=== PATIENT | female | born 1985 ===

== ENCOUNTER 2017-09-25 13:32 | Observation (INO) | payer OTHER ==
--- NOTE | 2017-09-25 13:45 | ED PDOC ---
Arrival/HPI - General Historian: Patient <Baldomero Rea - Last Filed: 09/25/17 17:09> <Joel Mckeon - Last Filed: 09/25/17 17:32> - General Chief Complaint: Shortness Of Breath Time Seen by Provider: 09/25/17 13:44 - History of Present Illness Narrative History of Present Illness (Text): 09/25/17 13:44 32 y/o female, no significant pmh, nkda, non-smoker, c/o coughing for the past 3 months with no recent traveling. Pt. has been having dry to productive coughing x 2-3 months, been having wheezing/shortness of breath of breath on and off for the past 2 weeks, no night sweat, no rash, no hemoptysis, no weight loss, no calf pain, no other medical or psychological complaints. (Baldomero Rea) Past Medical History - Provider Review Nursing Documentation Reviewed: Yes - Psychiatric Hx Psychophysiologic Disorder: No Hx Substance Use: No <Baldomero Rea - Last Filed: 09/25/17 17:09> Family/Social History - Physician Review Nursing Documentation Reviewed: Yes Family/Social History: Unknown Family HX Smoking Status: Never Smoked Hx Alcohol Use: Yes Frequency of alcohol use: Socially Hx Substance Use: No <Baldomeor Rea - Last Filed: 09/25/17 17:09> Allergies/Home Meds <Baldomero Rea - Last Filed: 09/25/17 17:09> <Joel Mckeon - Last Filed: 09/25/17 17:32> Allergies/Adverse Reactions: Allergies No Known Allergies Allergy (Verified 09/25/17 13:39) Home Medications: Home Meds Medication Instructions Recorded Confirmed No Known Home Med 09/25/17 09/25/17 Review of Systems - Review of Systems Constitutional: absent: Fatigue, Fevers Eyes: absent: Vision Changes ENT: absent: Hearing Changes Respiratory: SOB, Cough, Sputum Cardiovascular: absent: Chest Pain Gastrointestinal: absent: Abdominal Pain, Nausea, Vomiting Skin: absent: Rash, Pruritis Neurological: absent: Headache Psychiatric: absent: Anxiety, Depression <Baldomero Rea - Last Filed: 09/25/17 17:09> Physical Exam Vital Signs Reviewed: Yes Temperature: Afebrile Blood Pressure: Normal Pulse: Tachycardic Respiratory Rate: Normal Appearance: Positive for: Well-Appearing, Non-Toxic, Comfortable Pain Distress: None Mental Status: Positive for: Alert and Oriented X 3 - Systems Exam Head: Present: Atraumatic, Normocephalic Pupils: Present: PERRL Extroacular Muscles: Present: EOMI Conjunctiva: Present: Normal Mouth: Present: Moist Mucous Membranes Neck: Present: Normal Range of Motion Respiratory/Chest: Present: Wheezes, Decreased Breath Sounds, Rales, Rhonchi. No: Respiratory Distress, Accessory Muscle Use, Retracting, Tachypneic, Tender to Palpation Cardiovascular: Present: Regular Rate and Rhythm, Normal S1, S2. No: Murmurs Abdomen: No: Tenderness, Distention, Peritoneal Signs, Rebound, Guarding Back: Present: Normal Inspection Upper Extremity: Present: Normal Inspection. No: Cyanosis, Edema Lower Extremity: Present: Normal Inspection. No: Edema Neurological: Present: GCS=15, CN II-XII Intact, Speech Normal Skin: Present: Warm, Dry, Normal Color. No: Rashes Psychiatric: Present: Alert, Oriented x 3, Normal Insight, Normal Concentration <Baldomero Rea Q - Last Filed: 09/25/17 17:09> Vital Signs Temp Pulse Resp BP Pulse Ox 09/25/17 17:23 112 H 18 140/86 97 09/25/17 13:39 98.5 F 104 H 19 111/71 95 09/25/17 13:33 98.5 F 104 H 19 111/71 95 Medical Decision Making - Lab Interpretations I have reviewed the lab results: Yes - RAD Interpretation Automotive Production Worker: Radiologist - EKG Interpretation Interpreted by ED Physician: Yes Type: 12 lead EKG <Baldomero Rea - Last Filed: 09/25/17 17:09> <Joel Mckeon - Last Filed: 09/25/17 17:32> ED Course and Treatment: 09/25/17 13:56 -labs/dimer/bnp/cardiac enzymes -ekg -cxr -IVF/duoneb -observe and reassess 09/25/17 14:32 -Dimer 404, CTA ordered and chest xray cancelled 09/25/17 16:57 -Urine hcg is negative. -EKG: NSR @ 98 BPM, no ST elevation or depression, no T wave inversion. -CTA show: Limited examination. No large central pulmonary embolism. Cannot evaluate segmental and subsegmental pulmonary artery branches reliably on the basis of this examination. Patchy opacities in both lower lobes, right greater than left. Possible infectious etiology. -Labs show no acute findings except wbc 17 -Troponin is negative after 3 months of symptoms -BNP is negative -Dimer show 404 -Pt. refused guaiac exam and denies dark/black color stool, no bright red blood , no hematuria, no petechiae. -IV rocephine/azithromycin/solumedrol ordered as she is still wheezing, lovenox 85mg SC ordered, blood culture and pt/ptt ordered. -Pt. will need admission for IV antibiotics and further work up for r/o PE as the CTA is limited study. -I discussed the labs/radiology results with the patient and she agreed to be admitted. -Hospitalist paged. 09/25/17 17:10 -I discussed the case with Dr. Sagar Reynoso , discussed about the labs/radiology results/medications and treatment given, agreed to admit to their service. -I discussed the case with Dr. Wells, discussed about the labs/radiology results /medications and treatment given. He will put in the admission. (Baldomero Rea) - Lab Interpretations Lab Results: 09/25/17 14:18 09/25/17 14:18 Lab Results 09/25/17 14:18: WBC 17.0 H, RBC 4.03, Hgb 12.5, Hct 36.8, MCV 91.3, MCH 31.0, MCHC 34.0, RDW 12.1, Plt Count 285, MPV 10.4, Gran % 70.9 H, Lymph % (Auto) 17.3 L, [place] % (Auto) 8.1 H, Eos % (Auto) 3.5, Baso % (Auto) 0.2, Gran # 12.01 H , Lymph # (Auto) 2.9, [place] # (Auto) 1.4 H, Eos # (Auto) 0.6, Baso # (Auto) 0.03 09/25/17 14:18: Sodium 141, Potassium 3.7, Chloride 104, Carbon Dioxide 25, Anion Gap 15, BUN 6 L, Creatinine 0.8, Est GFR ( Amer) > 60, Est GFR (Non -Af Amer) > 60, Random Glucose 95, Calcium 9.7, Magnesium 1.9, Total Bilirubin 0.5, AST 29, ALT 43, Alkaline Phosphatase 61, Lactate Dehydrogenase 383, Total Creatine Kinase 110, Troponin I < 0.01, NT-Pro-B Natriuret Pep 72.5, Total Protein 7.4, Albumin 4.2, Globulin 3.1, Albumin/Globulin Ratio 1.4 09/25/17 14:18: D-Dimer, Quantitative 404 H - RAD Interpretation Radiology Orders: 09/25/17 14:32 ANGIO CHEST PE PROTOCOL [CT] Stat FINDINGS: PULMONARY ARTERIES: Evaluation technically limited. No large central pulmonary embolism in main or lobar arteries. Segmental/ subsegmental pulmonary arterial evaluation is limited. AORTA: No acute findings. No thoracic aortic aneurysm. LUNGS: Nonspecific patchy opacities in both lower lobes, right greater than left. Possible pneumonia. PLEURAL SPACES: Unremarkable. No effusion or pneuomothorax. HEART: Unremarkable. No cardiomegaly. No significant pericardial effusion. LYMPH NODES: No lymphadenopathy. BONES, CHEST WALL: Unremarkable. No fracture or destructive lesion OTHER FINDINGS: Unremarkable. IMPRESSION: Limited examination. No large central pulmonary embolism. Cannot evaluate segmental and subsegmental pulmonary artery branches reliably on the basis of this examination. Patchy opacities in both lower lobes, right greater than left. Possible infectious etiology. (Baldomero Rea) - EKG Interpretation EKG Interpretation (Text): 09/25/17 14:01 -EKG: NSR @ 98 BPM, no ST elevation or depression, no T wave inversion. (Baldomero Rea) - Medication Orders Current Medication Orders: Azithromycin (Zithromax 500mg In Ns) 500 mg in 250 mls @ 167 mls/hr IVPB STAT STA PRN Reason: Protocol Stop: 09/25/17 18:20 Discontinued Medications Albuterol/Ipratropium (Duoneb 3 Mg/0.5 Mg (3 Ml) Ud) 3 ml IH Q15M CHRISSY Stop: 09/25/17 14:31 Last Admin: 09/25/17 14:43 Dose: 3 ml Enoxaparin Sodium (Lovenox) 90 mg SC STAT STA PRN Reason: Protocol Stop: 09/25/17 17:29 Sodium Chloride (Sodium Chloride 0.9%) 1,000 mls @ 999 mls/hr IV .Q1H1M STA Stop: 09/25/17 14:53 Last Admin: 09/25/17 14:11 Dose: 999 mls/hr eMAR Start Stop Document 09/25/17 14:11 SRE (Rec: 09/25/17 14:13 SRE [id number]) Intravenous Solution Start Date 09/25/17 Start Time 14:13 End Date 09/25/17 End time 15:15 Total Infusion Time 62 Ceftriaxone Sodium (Rocephin 1 Gram Ivpb) 1 gm in 100 mls @ 200 mls/hr IVPB STAT STA PRN Reason: Protocol Stop: 09/25/17 17:20 Last Admin: 09/25/17 17:10 Dose: 200 mls/hr eMAR Start Stop Document 09/25/17 17:10 SRE (Rec: 09/25/17 17:10 SRE [id number]) Intravenous Solution Start Date 09/25/17 Start Time 17:10 End Date 09/25/17 End time 18:00 Total Infusion Time 50 Methylprednisolone (Solu-Medrol) 125 mg IVP STAT STA Stop: 09/25/17 16:53 Last Admin: 09/25/17 17:13 Dose: 125 mg IVP Administration Document 09/25/17 17:13 SRE (Rec: 09/25/17 17:13 SRE [id number]) Charges for Administration # of IVP Administrations 1 - PA / [employer]TAIN / Resident Statement LESLIE has reviewed & agrees with the documentation as recorded. <Baldomero Rea - Last Filed: 09/25/17 17:09> - PA / [employer] CAPTAIN / Resident Statement LESLIE has reviewed & agrees with the documentation as recorded. <Joel Mckeon - Last Filed: 09/25/17 17:32> Disposition/Present on Arrival - Present on Arrival Any Indicators Present on Arrival: No History of DVT/PE: No History of Uncontrolled Diabetes: No Urinary Catheter: No History of Decub. Ulcer: No History Surgical Site Infection Following: None - Disposition Have Diagnosis and Disposition been Completed?: Yes Disposition Time: 13:56 Patient Plan: Admission <Baldomero Rea - Last Filed: 09/25/17 17:09> <Joel Mckeon - Last Filed: 09/25/17 17:32> - Disposition Diagnosis: Bilateral pneumonia, Shortness of breath, Leukocytosis Disposition: HOSPITALIZED Patient Problems: Current Active Problems Problem Status Onset Bilateral pneumonia Acute Leukocytosis Acute Shortness of breath Acute Condition: STABLE Referrals: PCP,NO [Primary Care Provider] - Follow up with primary Forms: [employer] (Mont[place]grin)
[2017-09-25] MEDS ORDERED: Sodium Chloride 0.9% 1,000 ML IV STA (13:53)
[2017-09-25] MEDS: Albuterol-Ipratrop 3 mg / 0.5 (3 ml) UD IH SCH ×3 (14:13→14:43)
[2017-09-25 14:21] LABS: BASO # 0.03 K/mm3 (0.0-2.0); BASO % 0.2 % (0.0-3.0); EOS # 0.6 (0.0-0.7); EOS % 3.5 % (1.5-5.0); GRAN # 12.01 (1.4-6.5); GRAN % 70.9 % (50.0-68.0); HEMOGLOBIN 12.5 g/dL (12.0-16.0); LYMPH # 2.9 (1.2-3.4); LYMPH % 17.3 % (22.0-35.0); MEAN CELL VOLUME 91.3 fl (80.0-105.0); MEAN PLATELET VOLUME 10.4 fl (7.0-11.0); MONO # 1.4 (0.1-0.6); MONO % 8.1 % (1.0-6.0); RBC 4.03 10^6/uL (3.5-6.1); RED CELL DISTRIBUTION WIDTH 12.1 % (11.5-14.5)
[2017-09-25 14:33] LABS: ALB/GLOB RATIO 1.4 (1.1-1.8); ALBUMIN 4.2 g/dL (3.0-4.8); ALT/SGPT 43 U/L (7-56); AST/SGOT 29 U/L (14-36); BLOOD UREA NITROGEN 6 mg/dL (7-21); CALCIUM 9.7 mg/dL (8.4-10.5); GFR AFRICAN-AMERICAN > 60; GFR NON-AFRICAN AMERICAN > 60
[2017-09-25 14:45] LABS: B-TYPE NATRIURETIC PEPTIDE 72.5 pg/mL (0-450); TROPONIN I < 0.01 ng/mL
[2017-09-25] MEDS ORDERED: Iohexol 350 MG/100 ML VIAL ONE (14:51)
[2017-09-25] MEDS ORDERED: Azithromycin 500MG/NS 250ml 500 MG/250 ML BAG IVPB STA (16:51)
[2017-09-25] MEDS ORDERED: cefTRIAXone 1 gm 1 GM/100 ML BAG IVPB STA (16:51)
--- NOTE | 2017-09-25 16:51 | CT ---
PROCEDURE: CT Chest with contrast (Pulmonary Angiogram) HISTORY: shortnes of breath, dimer 404, wheezing x 3 months COMPARISON: None available. TECHNIQUE: Axial computed tomography images were obtained of the chest in the pulmonary arterial phase of enhancement. Coronal and sagittal reformatted images were created and reviewed. Intravenous contrast dose: 92 mL Omnipaque 350 Radiation dose: Total exam DLP = 491.21 mGy-cm. This CT exam was performed using one or more of the following dose reduction techniques: Automated exposure control, adjustment of the mA and/or kV according to patient size, and/or use of iterative reconstruction technique. FINDINGS: PULMONARY ARTERIES: Evaluation technically limited. No large central pulmonary embolism in main or lobar arteries. Segmental/ subsegmental pulmonary arterial evaluation is limited. AORTA: No acute findings. No thoracic aortic aneurysm. LUNGS: Nonspecific patchy opacities in both lower lobes, right greater than left. Possible pneumonia. PLEURAL SPACES: Unremarkable. No effusion or pneuomothorax. HEART: Unremarkable. No cardiomegaly. No significant pericardial effusion. LYMPH NODES: No lymphadenopathy. BONES, CHEST WALL: Unremarkable. No fracture or destructive lesion OTHER FINDINGS: Unremarkable. IMPRESSION: Limited examination. No large central pulmonary embolism. Cannot evaluate segmental and subsegmental pulmonary artery branches reliably on the basis of this examination. Patchy opacities in both lower lobes, right greater than left. Possible infectious etiology.
[2017-09-25] MEDS ORDERED: Enoxaparin 100 mg Syringe SC STA ×2 (16:53→17:28)
[2017-09-25] MEDS ORDERED: Enoxaparin 60 mg Syringe SC STA (17:15)
[2017-09-25 18:07] LABS: INR 1.03 (0.93-1.08); PARTIAL THROMBOPLASTIN TIME 34.8 Seconds (25.1-36.5); PROTHROMBIN TIME 11.7 SECONDS (9.4-12.5)
--- NOTE | 2017-09-25 18:11 | CP.PCM.HP ---
History of Present Illness - History of Present Illness History of Present Illness: CC: Productive Intermittent cough, shortness of breath on exertion/malaise HPI: 32 F with no significant PMHx presented to the [facility] ED with complaints of productive intermittent cough and shortness of breath. Pt states that her cough began roughly 3 months ago and has persisted despite having a week or so symptom free. Pt states that her cough is productive with greenish sputum in scant amounts. 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 Pt sought medical attention today because of her symptoms worsening and her cough worsening with more frequency. Pt denied fever, chills, night sweats, lower extremity swelling, calf tenderness, chest pains at rest or with deep inhalation, abdominal pains, nausea, vomiting, constipation, diarrhea, or dysuria. PMHx: Denied PSHx: Denied FamHx: Mom-DM2 SHx: Quit tobacco 3 years ago (1/2ppd x 5 yrs prior to quitting). Social EtOH, daily marijuana use. Works as Nanny. 1 . LMP 09/04 Meds: Denied Allergies: Doxycycline - hives PMD: Dr. Phelps Present on Admission - Present on Admission Any Indicators Present on Admission: No Review of Systems - Review of Systems Review of Systems: as per HPI otherwise negative Past Patient History - Past Social History Smoking Status: Never Smoked - PSYCHIATRIC Hx Psychophysiologic Disorder: No Hx Substance Use: No - SURGICAL HISTORY Hx Surgeries: No Meds Allergies/Adverse Reactions: Allergies Allergy/AdvReac Type Severity Reaction Status Date / Time No Known Allergies Allergy Verified 09/25/17 13:39 Physical Exam - Constitutional Appears: No Acute Distress - Head Exam Head Exam: ATRAUMATIC, NORMAL INSPECTION, NORMOCEPHALIC - Eye Exam Eye Exam: EOMI, Normal appearance, PERRL Pupil Exam: NORMAL ACCOMODATION, PERRL - ENT Exam ENT Exam: Mucous Membranes Moist, Normal Exam - Respiratory Exam Respiratory Exam: Rhonchi (b/l L>R), NORMAL BREATHING PATTERN. absent: Wheezes - Cardiovascular Exam Cardiovascular Exam: Tachycardia, +S1, +S2 - GI/Abdominal Exam GI & Abdominal Exam: Normal Bowel Sounds, Soft. absent: Tenderness - Extremities Exam Extremities exam: Positive for: normal inspection - Neurological Exam Neurological exam: Alert, CN II-XII Intact, Normal Gait, Oriented x3, Reflexes Normal - Psychiatric Exam Psychiatric exam: Normal Affect, Normal Mood - Skin Skin Exam: Dry, Intact, Normal Color, Warm Results - Vital Signs Recent Vital Signs: Last Vital Signs Temp 98.5 F 09/25/17 13:39 Pulse 112 H 09/25/17 17:23 Resp 18 09/25/17 17:23 BP 140/86 09/25/17 17:23 Pulse Ox 97 09/25/17 17:23 - Labs Result Diagrams: 09/25/17 14:18 09/25/17 14:18 Labs: Laboratory Results - last 24 hr 09/25/17 09/25/17 09/25/17 14:18 14:18 14:18 WBC 17.0 H RBC 4.03 Hgb 12.5 Hct 36.8 MCV 91.3 MCH 31.0 MCHC 34.0 RDW 12.1 Plt Count 285 MPV 10.4 Gran % 70.9 H Lymph % (Auto) 17.3 L Gem % (Auto) 8.1 H Eos % (Auto) 3.5 Baso % (Auto) 0.2 Gran # 12.01 H Lymph # (Auto) 2.9 Gem # (Auto) 1.4 H Eos # (Auto) 0.6 Baso # (Auto) 0.03 D-Dimer, Quantitative 404 H Sodium 141 Potassium 3.7 Chloride 104 Carbon Dioxide 25 Anion Gap 15 BUN 6 L Creatinine 0.8 Est GFR ( Amer) > 60 Est GFR (Non-Af Amer) > 60 Random Glucose 95 Calcium 9.7 Magnesium 1.9 Total Bilirubin 0.5 AST 29 ALT 43 Alkaline Phosphatase 61 Lactate Dehydrogenase 383 Total Creatine Kinase 110 Troponin I < 0.01 NT-Pro-B Natriuret Pep 72.5 Total Protein 7.4 Albumin 4.2 Globulin 3.1 Albumin/Globulin Ratio 1.4 Assessment & Plan - Assessment and Plan (Free Text) Assessment: 32 F with no significant PMHx presented to the [facility] ED with complaints of productive intermittent cough and shortness of breath. CAP ronchorous on exam CT demonstrated b/l lower lobe opacities IV abx: Rocephin and Azithromycin xopenex aubrey/prn SIRS leukocytosis, tachycardic Fu UA, Ucx, Bcx, sputum Cx procal strep pneu ag legionella ag IVF SOB + D-Dimer CTA negative for large embolus, inconclusive for segmental emboli V/Q scan fu Therapeutic Lovenox in ED Fu results and reassess, as for now on VTE ppx Productive cough Robitussin xopenex no wheezing at this time, solumedrol in ED GI/DVT ppx Seen reviewed and discussed with Dr. Sagar Reynoso
[2017-09-25 19:11] LABS: PH,URINE 6.5 (4.7-8.0); URINE BILIRUBIN NEGATIVE (NEGATIVE); URINE BLOOD TRACE-INTACT (NEGATIVE); URINE GLUCOSE (UA) NEGATIVE (NEGATIVE); URINE LEUKOCYTE ESTERASE NEGATIVE Leu/uL (NEGATIVE); URINE PROTEIN NEGATIVE mg/dL (<30 mg/dL); URINE UROBILINOGEN 0.2 E.U./dL (<1 E.U./dL)
[2017-09-25 19:13] LABS: URINE APPEARANCE CLEAR (CLEAR); URINE COLOR YELLOW (YELLOW)
[2017-09-25 19:34] LABS: URINE BACTERIA FEW (NEG); URINE RBC NEGATIVE /hpf (0-2)
[2017-09-25 20:20] VITALS: BMI 36.0
[2017-09-25] MEDS: Levalbuterol 1.25 MG/3 ML Inhal Soln UD IH SCH (20:49)
[2017-09-25] MEDS ORDERED: MethylPREDNISolone 40 mg Vial IVP SCH (22:00)
[2017-09-26] MEDS: guaiFENesin DM 200 mg-20 mg/10 ml UD PO PRN (01:04)
[2017-09-26] MEDS: Levalbuterol 1.25 MG/3 ML Inhal Soln UD IH PRN ×2 (02:55→07:47)
[2017-09-26 07:17] LABS: BASO # 0.01 K/mm3 (0.0-2.0); BASO % 0.1 % (0.0-3.0); GRAN # 11.4 (1.4-6.5); HEMOGLOBIN 12.3 g/dL (12.0-16.0); LYMPH # 1.1 (1.2-3.4); LYMPH % 8.7 % (22.0-35.0); MEAN CELL VOLUME 91.7 fl (80.0-105.0); MEAN CORPUSCULAR HEMOGLOBIN 30.1 pg (25.0-35.0); MEAN CORPUSCULAR HGB CONC 32.9 g/dl (31.0-37.0); MEAN PLATELET VOLUME 11.1 fl (7.0-11.0); MONO # 0.3 (0.1-0.6); MONO % 2.2 % (1.0-6.0); RBC 4.08 10^6/uL (3.5-6.1); RED CELL DISTRIBUTION WIDTH 12.2 % (11.5-14.5); WHITE BLOOD COUNT 12.8 10^3/ul (4.5-11.0)
[2017-09-26 07:44] LABS: ALB/GLOB RATIO 1.3 (1.1-1.8); ALBUMIN 4.2 g/dL (3.0-4.8); ALT/SGPT 39 U/L (7-56); AST/SGOT 22 U/L (14-36); BLOOD UREA NITROGEN 8 mg/dL (7-21); CALCIUM 9.2 mg/dL (8.4-10.5); GFR AFRICAN-AMERICAN > 60; GFR NON-AFRICAN AMERICAN > 60
[2017-09-26] MEDS: Levalbuterol 1.25 MG/3 ML Inhal Soln UD IH SCH ×3 (07:47→21:41)
[2017-09-26] MEDS: Pantoprazole 20 mg EC Tab PO SCH (08:01)
--- NOTE | 2017-09-26 08:59 | CARD ---
APPROVED REPORT EKG Measurement Heart [id number] <Conclusion> Normal sinus rhythm Normal ECG
[2017-09-26] MEDS: Enoxaparin 40 mg Syringe SC SCH (09:16)
[2017-09-26] MEDS: cefTRIAXone 1 gm 1 GM/100 ML BAG IVPB SCH (09:17)
[2017-09-26] MEDS: Azithromycin 500MG/NS 250ml 500 MG/250 ML BAG IVPB SCH (09:17)
--- NOTE | 2017-09-26 14:50 | CP.PCM.PN ---
<Jason Tong - Last Filed: 09/26/17 14:50> Subjective - Date & Time of Evaluation Date of Evaluation: 09/26/17 Time of Evaluation: 09:00 - Subjective Subjective: Patient seen and examined at bedside. Reports slight improvement in cough. Denies any fevers, chills, chest pain, or SOB. Objective - Vital Signs/Intake and Output Vital Signs (last 24 hours): Temp Pulse Resp BP Pulse Ox 97.9 F 85 20 111/63 94 L 09/26/17 09:20 09/26/17 10:00 09/26/17 09:20 09/26/17 09:20 09/26/17 09:20 Intake and Output: 09/26/17 09/26/17 06:59 18:59 Intake Total 0 925 Output Total 0 Balance 0 925 - Medications Medications: Current Medications Enoxaparin Sodium (Lovenox) 40 mg SC DAILY CHRISSY PRN Reason: Protocol Last Admin: 09/26/17 09:16 Dose: 40 mg Guaifenesin/Dextromethorphan (Robitussin Dm) 10 ml PO Q4H PRN PRN Reason: Cough Last Admin: 09/26/17 01:04 Dose: 10 ml Ceftriaxone Sodium (Rocephin 1 Gram Ivpb) 1 gm in 100 mls @ 100 mls/hr IVPB DAILY CHRISSY PRN Reason: Protocol Last Admin: 09/26/17 09:17 Dose: 100 mls/hr Azithromycin (Zithromax 500mg In Ns) 500 mg in 250 mls @ 167 mls/hr IVPB DAILY CHRISSY PRN Reason: Protocol Last Admin: 09/26/17 09:17 Dose: 167 mls/hr Levalbuterol HCl (Xopenex) 1.25 mg IH [id number] PRN PRN Reason: Shortness of Breath Last Admin: 09/26/17 07:47 Dose: 1.25 mg Levalbuterol HCl (Xopenex) 1.25 mg IH TIDRESP CHRISSY Last Admin: 09/26/17 13:22 Dose: 1.25 mg Pantoprazole Sodium (Protonix Ec Tab) 20 mg PO 0600 CHRISSY Last Admin: 09/26/17 08:01 Dose: 20 mg - Labs Labs: 09/26/17 06:30 04/16/18 06:30 PT 11.7 SECONDS (9.4-12.5) 09/25/17 14:35 INR 1.03 (0.93-1.08) 09/25/17 14:35 APTT 34.8 Seconds (25.1-36.5) 09/25/17 14:35 - Constitutional Appears: Well, Non-toxic, No Acute Distress - Head Exam Head Exam: ATRAUMATIC, NORMAL INSPECTION, NORMOCEPHALIC - Eye Exam Eye Exam: Normal appearance - ENT Exam ENT Exam: Mucous Membranes Moist - Respiratory Exam Respiratory Exam: Clear to Ausculation Bilateral, NORMAL BREATHING PATTERN. absent: Decreased Breath Sounds, Rales, Rhonchi, Wheezes, Respiratory Distress, Stridor - Cardiovascular Exam Cardiovascular Exam: RRR, +S1, +S2. absent: JVD - GI/Abdominal Exam GI & Abdominal Exam: Soft, Normal Bowel Sounds. absent: Tenderness - Extremities Exam Extremities Exam: Normal Capillary Refill, Normal Inspection - Neurological Exam Neurological Exam: Alert, Awake, Oriented x3 - Psychiatric Exam Psychiatric exam: Normal Affect, Normal Mood - Skin Skin Exam: Dry, Normal Color, Warm Assessment and Plan - Assessment and Plan (Free Text) Assessment: 32 F with no significant PMHx presented to the [facility] ED with complaints of productive intermittent cough and shortness of breath. Plan: CAP (Improving) CT demonstrated b/l lower lobe opacities IV abx: Rocephin and Azithromycin xopenex chrissy/prn Robitussin DM 10ml PO Q4H for cough. Consider Tessalon Perles SIRS (Resolved) Pancultures - PENDING procal strep pneu ag legionella ag IVF DIspo: Plan for DC tomorrow. GI/DVT ppx: Protonix/Lovenox Patient discussed with Attending Jason Tong, PGY-1 <Sendy Lee - Last Filed: 09/26/17 16:27> Objective - Vital Signs/Intake and Output Vital Signs (last 24 hours): Temp Pulse Resp BP Pulse Ox 97.9 F 85 20 111/63 94 L 09/26/17 09:20 09/26/17 10:00 09/26/17 09:20 09/26/17 09:20 09/26/17 09:20 Intake and Output: 09/26/17 09/26/17 06:59 18:59 Intake Total 0 925 Output Total 0 Balance 0 925 - Medications Medications: Current Medications Enoxaparin Sodium (Lovenox) 40 mg SC DAILY CHRISSY PRN Reason: Protocol Last Admin: 09/26/17 09:16 Dose: 40 mg Guaifenesin/Dextromethorphan (Robitussin Dm) 10 ml PO Q4H PRN PRN Reason: Cough Last Admin: 09/26/17 01:04 Dose: 10 ml Ceftriaxone Sodium (Rocephin 1 Gram Ivpb) 1 gm in 100 mls @ 100 mls/hr IVPB DAILY CHRISSY PRN Reason: Protocol Last Admin: 09/26/17 09:17 Dose: 100 mls/hr Azithromycin (Zithromax 500mg In Ns) 500 mg in 250 mls @ 167 mls/hr IVPB DAILY CHRISSY PRN Reason: Protocol Last Admin: 09/26/17 09:17 Dose: 167 mls/hr Levalbuterol HCl (Xopenex) 1.25 mg IH [id number] PRN PRN Reason: Shortness of Breath Last Admin: 09/26/17 07:47 Dose: 1.25 mg Levalbuterol HCl (Xopenex) 1.25 mg IH TIDRESP CHRISSY Last Admin: 09/26/17 13:22 Dose: 1.25 mg Pantoprazole Sodium (Protonix Ec Tab) 20 mg PO 0600 CHRISSY Last Admin: 09/26/17 08:01 Dose: 20 mg - Labs Labs: 09/26/17 06:30 09/26/17 06:30 PT 11.7 SECONDS (9.4-12.5) 09/25/17 14:35 INR 1.03 (0.93-1.08) 09/25/17 14:35 APTT 34.8 Seconds (25.1-36.5) 09/25/17 14:35 Attending/Attestation - Attestation I have personally seen and examined this patient.: Yes I have fully participated in the care of the patient.: Yes I have reviewed all pertinent clinical information, including history, physical exam and plan: Yes Notes (Text): 09/26/17 16:25 attending note; Patient seen and examined with resident. Patient is a 32-year-old female admitted with significant cough and sputum production. CT chest showed bilateral lower lobe infiltrates. No pulmonary embolus. Continue DuoNeb, IV Rocephin and Zithromax. Leukocytosis is improving. Possible discharge home tomorrow if stable. Upon discharge the patient will follow-up with [facility] clinic.
[2017-09-27] MEDS: guaiFENesin DM 200 mg-20 mg/10 ml UD PO PRN ×2 (01:39→08:51)
[2017-09-27] MEDS: Pantoprazole 20 mg EC Tab PO SCH (06:06)
[2017-09-27 06:29] LABS: BASO # 0.06 K/mm3 (0.0-2.0); BASO % 0.5 % (0.0-3.0); EOS # 0.3 (0.0-0.7); EOS % 2.1 % (1.5-5.0); GRAN # 7.62 (1.4-6.5); GRAN % 58.9 % (50.0-68.0); HEMOGLOBIN 11.4 g/dL (12.0-16.0); LYMPH % 31.2 % (22.0-35.0); MEAN CELL VOLUME 93.2 fl (80.0-105.0); MEAN CORPUSCULAR HEMOGLOBIN 29.8 pg (25.0-35.0); MONO % 7.3 % (1.0-6.0); RBC 3.82 10^6/uL (3.5-6.1); RED CELL DISTRIBUTION WIDTH 12.4 % (11.5-14.5); WHITE BLOOD COUNT 12.9 10^3/ul (4.5-11.0)
[2017-09-27 07:04] LABS: ALB/GLOB RATIO 1.3 (1.1-1.8); ALBUMIN 3.7 g/dL (3.0-4.8); ALT/SGPT 27 U/L (7-56); AST/SGOT 22 U/L (14-36); BLOOD UREA NITROGEN 13 mg/dL (7-21); CALCIUM 8.8 mg/dL (8.4-10.5); GFR AFRICAN-AMERICAN > 60; GFR NON-AFRICAN AMERICAN > 60
[2017-09-27] MEDS: Levalbuterol 1.25 MG/3 ML Inhal Soln UD IH SCH ×2 (07:55→13:24)
[2017-09-27 08:34] VITALS: BP 116/81; RESP 16; TEMP 98; O2SAT 98
[2017-09-27] MEDS: cefTRIAXone 1 gm 1 GM/100 ML BAG IVPB SCH (09:20)
[2017-09-27] MEDS: Enoxaparin 40 mg Syringe SC SCH (09:20)
[2017-09-27] MEDS: Azithromycin 500MG/NS 250ml 500 MG/250 ML BAG IVPB SCH (11:02)
--- NOTE | 2017-09-27 11:47 | CP.PCM.DIS ---
<Jason Tong - Last Filed: 09/27/17 11:42> Provider - Provider Date of Admission: 09/25/17 19:17 Attending physician: Sendy Lee MD Primary care physician: NO PRIMARY CARE PROVIDER Time Spent in preparation of Discharge (in minutes): 40 Diagnosis - Discharge Diagnosis (1) Bilateral pneumonia Status: Acute (2) Shortness of breath Status: Acute Hospital Course - Lab Results Lab Results: Most Recent Lab Values WBC 12.9 10^3/ul (4.5-11.0) H 09/27/17 05:30 RBC 3.82 10^6/uL (3.5-6.1) 09/27/17 05:30 Hgb 11.4 g/dL (12.0-16.0) L 09/27/17 05:30 Hct 35.6 % (36.0-48.0) L 09/27/17 05:30 MCV 93.2 fl (80.0-105.0) 09/27/17 05:30 MCH 29.8 pg (25.0-35.0) 09/27/17 05:30 MCHC 32.0 g/dl (31.0-37.0) 09/27/17 05:30 RDW 12.4 % (11.5-14.5) 09/27/17 05:30 Plt Count 302 10^3/uL (120.0-450.0) 09/27/17 05:30 MPV 10.0 fl (7.0-11.0) 09/27/17 05:30 Gran % 58.9 % (50.0-68.0) 09/27/17 05:30 Lymph % (Auto) 31.2 % (22.0-35.0) 09/27/17 05:30 [place] % (Auto) 7.3 % (1.0-6.0) H 09/27/17 05:30 Eos % (Auto) 2.1 % (1.5-5.0) 09/27/17 05:30 Baso % (Auto) 0.5 % (0.0-3.0) 09/27/17 05:30 Gran # 7.62 (1.4-6.5) H 09/27/17 05:30 Lymph # (Auto) 4.0 (1.2-3.4) H 09/27/17 05:30 [place] # (Auto) 1.0 (0.1-0.6) H 09/27/17 05:30 Eos # (Auto) 0.3 (0.0-0.7) 09/27/17 05:30 Baso # (Auto) 0.06 K/mm3 (0.0-2.0) 09/27/17 05:30 PT 11.7 SECONDS (9.4-12.5) 09/25/17 14:35 INR 1.03 (0.93-1.08) 09/25/17 14:35 APTT 34.8 Seconds (25.1-36.5) 09/25/17 14:35 D-Dimer, Quantitative 404 ng/mL (0-243) H 09/25/17 14:18 Sodium 143 mmol/L (132-148) 09/27/17 05:30 Potassium 3.6 mmol/L (3.6-5.0) 09/27/17 05:30 Chloride 108 mmol/L (98-107) H 09/27/17 05:30 Carbon Dioxide 24 mmol/L (21-33) 09/27/17 05:30 Anion Gap 15 (10-20) 09/27/17 05:30 BUN 13 mg/dL (7-21) 09/27/17 05:30 Creatinine 0.7 mg/dl (0.7-1.2) 09/27/17 05:30 Est GFR ( Amer) > 60 09/27/17 05:30 Est GFR (Non-Af Amer) > 60 09/27/17 05:30 Random Glucose 102 mg/dL (70-110) 09/27/17 05:30 Calcium 8.8 mg/dL (8.4-10.5) 09/27/17 05:30 Phosphorus 4.3 mg/dL (2.5-4.5) 09/27/17 05:30 Magnesium 2.0 mg/dL (1.7-2.2) 09/27/17 05:30 Total Bilirubin 0.2 mg/dL (0.2-1.3) 09/27/17 05:30 AST 22 U/L (14-36) 09/27/17 05:30 ALT 27 U/L (7-56) 09/27/17 05:30 Alkaline Phosphatase 71 U/L (38-126) 09/27/17 05:30 Lactate Dehydrogenase 383 U/L (333-699) 09/25/17 14:18 Total Creatine Kinase 110 U/L (35-230) 09/25/17 14:18 Troponin I < 0.01 ng/mL 09/25/17 14:18 NT-Pro-B Natriuret Pep 72.5 pg/mL (0-450) 09/25/17 14:18 Total Protein 6.7 g/dL (5.8-8.3) 09/27/17 05:30 Albumin 3.7 g/dL (3.0-4.8) 09/27/17 05:30 Globulin 3.0 gm/dL 09/27/17 05:30 Albumin/Globulin Ratio 1.3 (1.1-1.8) 09/27/17 05:30 Procalcitonin < 0.05 NG/ML (0.19-0.49) L 09/25/17 18:00 Urine Color Yellow (YELLOW) 09/25/17 18:00 Urine Appearance Clear (CLEAR) 09/25/17 18:00 Urine pH 6.5 (4.7-8.0) 09/25/17 18:00 Ur Specific [place] 1.020 (1.005-1.035) 09/25/17 18:00 Urine Protein Negative mg/dL (<30 mg/dL) 09/25/17 18:00 Urine Glucose (UA) Negative mg/dL (NEGATIVE) 09/25/17 18:00 Urine Ketones Negative mg/dL (NEGATIVE) 09/25/17 18:00 Urine Blood Trace-intact (NEGATIVE) H 09/25/17 18:00 Urine Nitrate Negative (NEGATIVE) 09/25/17 18:00 Urine Bilirubin Negative (NEGATIVE) 09/25/17 18:00 Urine Urobilinogen 0.2 E.U./dL (<1 E.U./dL) 09/25/17 18:00 Ur Leukocyte Esterase Negative Paulette/uL (NEGATIVE) 09/25/17 18:00 Urine RBC Negative /hpf (0-2) 09/25/17 18:00 Urine WBC 1 - 3 /hpf (0-6) 09/25/17 18:00 Ur Epithelial Cells 3 - 4 /hpf (0-5) 09/25/17 18:00 Urine Bacteria Few (NEG) 09/25/17 18:00 Ur L.pneumophila Ag Negative (NEGATIVE) 09/25/17 20:15 - Hospital Course Hospital Course: 32 F with no significant PMHx presented to the [facility] ED with complaints of productive intermittent cough and shortness of breath. CT demonstrated b/l lower lobe opacities. Patient started on Rocephin And Azithromycin, CHRISSY/PRN Xopenx and Robitussin DM for her cough. Leukocytosis improved. ProCal, Urine Legionella, and blood cultures were all negative. Patient will be sent home with 7 days of levofloxacin, Ventolin IH, and robitussin DM. She has been told to follow up with her primary medical physician. A referral to visit [facility] clinic was put in her discharge paperwork. Patient is agreeable to plan and medications. Patient discussed with Attending. Discharge Exam - Head Exam Head Exam: ATRAUMATIC, NORMAL INSPECTION, NORMOCEPHALIC - Additional Findings Additional findings: - Constitutional Appears: Well, Non-toxic, No Acute Distress - Head Exam Head Exam: ATRAUMATIC, NORMAL INSPECTION, NORMOCEPHALIC - Eye Exam Eye Exam: Normal appearance - ENT Exam ENT Exam: Mucous Membranes Moist - Respiratory Exam Respiratory Exam: Clear to Ausculation Bilateral, NORMAL BREATHING PATTERN. absent: Decreased Breath Sounds, Rales, Rhonchi, Wheezes, Respiratory Distress, Stridor - Cardiovascular Exam Cardiovascular Exam: RRR, +S1, +S2. absent: JVD - GI/Abdominal Exam GI & Abdominal Exam: Soft, Normal Bowel Sounds. absent: Tenderness - Extremities Exam Extremities Exam: Normal Capillary Refill, Normal Inspection - Neurological Exam Neurological Exam: Alert, Awake, Oriented x3 - Psychiatric Exam Psychiatric exam: Normal Affect, Normal Mood - Skin Skin Exam: Dry, Normal Color, Warm Discharge Plan - Discharge Medications Prescriptions: Albuterol HFA [Ventolin HFA 90 mcg/actuation (8 g)] 2 puff IH [id number] PRN #1 vial PRN Reason: Cough guaiFENesin/Dextromethorphan [Q-Tussin Dm 10 MG/5 Ml-100 MG/5 Ml 120 Ml] 10 ml PO Q6H PRN #20 ml PRN Reason: Cough Levofloxacin [Levaquin] 500 mg PO DAILY #7 tablet - Follow Up Plan Condition: STABLE Disposition: HOME/ ROUTINE Instructions: Pneumonia, Adult (DC), Cough, Adult (DC) Additional Instructions: Please take medications as instructed. Please complete full course of antibiotics even if your symptoms resolve. Please follow up with your primary medical physician. A referral for our [facility] is in your discharge paperwork Referrals: [facility] at [facility] [Outside] PCP,NO [Primary Care Provider] - <Sendy Lee - Last Filed: 09/28/17 16:56> Provider - Provider Date of Admission: 09/25/17 19:17 Attending physician: Sendy Lee MD Primary care physician: NO PRIMARY CARE PROVIDER Hospital Course - Lab Results Lab Results: Most Recent Lab Values WBC 12.9 10^3/ul (4.5-11.0) H 09/27/17 05:30 RBC 3.82 10^6/uL (3.5-6.1) 09/27/17 05:30 Hgb 11.4 g/dL (12.0-16.0) L 09/27/17 05:30 Hct 35.6 % (36.0-48.0) L 09/27/17 05:30 MCV 93.2 fl (80.0-105.0) 09/27/17 05:30 MCH 29.8 pg (25.0-35.0) 09/27/17 05:30 MCHC 32.0 g/dl (31.0-37.0) 09/27/17 05:30 RDW 12.4 % (11.5-14.5) 09/27/17 05:30 Plt Count 302 10^3/uL (120.0-450.0) 09/27/17 05:30 MPV 10.0 fl (7.0-11.0) 09/27/17 05:30 Gran % 58.9 % (50.0-68.0) 09/27/17 05:30 Lymph % (Auto) 31.2 % (22.0-35.0) 09/27/17 05:30 [place] % (Auto) 7.3 % (1.0-6.0) H 09/27/17 05:30 Eos % (Auto) 2.1 % (1.5-5.0) 09/27/17 05:30 Baso % (Auto) 0.5 % (0.0-3.0) 09/27/17 05:30 Gran # 7.62 (1.4-6.5) H 09/27/17 05:30 Lymph # (Auto) 4.0 (1.2-3.4) H 09/27/17 05:30 [place] # (Auto) 1.0 (0.1-0.6) H 09/27/17 05:30 Eos # (Auto) 0.3 (0.0-0.7) 09/27/17 05:30 Baso # (Auto) 0.06 K/mm3 (0.0-2.0) 09/27/17 05:30 PT 11.7 SECONDS (9.4-12.5) 09/25/17 14:35 INR 1.03 (0.93-1.08) 09/25/17 14:35 APTT 34.8 Seconds (25.1-36.5) 09/25/17 14:35 D-Dimer, Quantitative 404 ng/mL (0-243) H 09/25/17 14:18 Sodium 143 mmol/L (132-148) 09/27/17 05:30 Potassium 3.6 mmol/L (3.6-5.0) 09/27/17 05:30 Chloride 108 mmol/L (98-107) H 09/27/17 05:30 Carbon Dioxide 24 mmol/L (21-33) 09/27/17 05:30 Anion Gap 15 (10-20) 09/27/17 05:30 BUN 13 mg/dL (7-21) 09/27/17 05:30 Creatinine 0.7 mg/dl (0.7-1.2) 09/27/17 05:30 Est GFR ( Amer) > 60 09/27/17 05:30 Est GFR (Non-Af Amer) > 60 09/27/17 05:30 Random Glucose 102 mg/dL (70-110) 09/27/17 05:30 Calcium 8.8 mg/dL (8.4-10.5) 09/27/17 05:30 Phosphorus 4.3 mg/dL (2.5-4.5) 09/27/17 05:30 Magnesium 2.0 mg/dL (1.7-2.2) 09/27/17 05:30 Total Bilirubin 0.2 mg/dL (0.2-1.3) 09/27/17 05:30 AST 22 U/L (14-36) 09/27/17 05:30 ALT 27 U/L (7-56) 09/27/17 05:30 Alkaline Phosphatase 71 U/L (38-126) 09/27/17 05:30 Lactate Dehydrogenase 383 U/L (333-699) 09/25/17 14:18 Total Creatine Kinase 110 U/L (35-230) 09/25/17 14:18 Troponin I < 0.01 ng/mL 09/25/17 14:18 NT-Pro-B Natriuret Pep 72.5 pg/mL (0-450) 09/25/17 14:18 Total Protein 6.7 g/dL (5.8-8.3) 09/27/17 05:30 Albumin 3.7 g/dL (3.0-4.8) 09/27/17 05:30 Globulin 3.0 gm/dL 09/27/17 05:30 Albumin/Globulin Ratio 1.3 (1.1-1.8) 09/27/17 05:30 Procalcitonin < 0.05 NG/ML (0.19-0.49) L 09/25/17 18:00 Urine Color Yellow (YELLOW) 09/25/17 18:00 Urine Appearance Clear (CLEAR) 09/25/17 18:00 Urine pH 6.5 (4.7-8.0) 09/25/17 18:00 Ur Specific [place] 1.020 (1.005-1.035) 09/25/17 18:00 Urine Protein Negative mg/dL (<30 mg/dL) 09/25/17 18:00 Urine Glucose (UA) Negative mg/dL (NEGATIVE) 09/25/17 18:00 Urine Ketones Negative mg/dL (NEGATIVE) 09/25/17 18:00 Urine Blood Trace-intact (NEGATIVE) H 09/25/17 18:00 Urine Nitrate Negative (NEGATIVE) 09/25/17 18:00 Urine Bilirubin Negative (NEGATIVE) 09/25/17 18:00 Urine Urobilinogen 0.2 E.U./dL (<1 E.U./dL) 09/25/17 18:00 Ur Leukocyte Esterase Negative Paulette/uL (NEGATIVE) 09/25/17 18:00 Urine RBC Negative /hpf (0-2) 09/25/17 18:00 Urine WBC 1 - 3 /hpf (0-6) 09/25/17 18:00 Ur Epithelial Cells 3 - 4 /hpf (0-5) 09/25/17 18:00 Urine Bacteria Few (NEG) 09/25/17 18:00 Ur L.pneumophila Ag Negative (NEGATIVE) 09/25/17 20:15 Attending/Attestation - Attestation I have personally seen and examined this patient.: Yes I have fully participated in the care of the patient.: Yes I have reviewed all pertinent clinical information, including history, physical exam and plan: Yes Notes (Text): 09/28/17 16:55 attending note; Patient seen and examined with resident. Patient is a 32-year-old female admitted with significant cough and sputum production. CT chest showed bilateral lower lobe infiltrates. No pulmonary embolus. Treated with DuoNeb, IV Rocephin and Zithromax. Leukocytosis is improving. Patient is not hypoxic. Ambulating fine. Cough is improving. Patient will be discharged home with close follow-up with PMD. Upon discharge the patient will follow-up with [facility] clinic.
[2017-09-27 13:17] VITALS: PULSE 93
== END 2017-09-27 16:40 | disposition home or self-care (01) ==
LOC: ED 13:32 → ERH 19:17 → 3RNO 20:53
PROVIDERS: ADMIT Hospitalist; ATTEND Internal Medicine
DX: J18.9 Pneumonia, unspecified organism (principal); F12.90 Cannabis use, unspecified, uncomplicated; Z87.891 Personal history of nicotine dependence
CPT/HCPCS: 36415; 71275; 80053; 81001; 82550; 83615; 83735; 83880; 84100; 84145; 84484; 85025; 85378; 85610; 85730; 87040; 87086; 87449; 87899; 93005; 94640; 94760; 96360; 96365; 96372; 96374; 99285; G0378; J0456; J0696; J1650; J2930; J7040; Q9967

== ENCOUNTER 2017-09-28 20:47 | Emergency (ER) | payer SELFPAY ==
[2017-09-28 20:47] VITALS: BMI 36.0
[2017-09-28] MEDS ORDERED: EPINEPHrine 1 mg/ml (1:1000) Inj SC ONE (20:52)
[2017-09-28] MEDS ORDERED: DiphenhydrAMINE 50 mg/ml Inj IVP ONE (20:54)
[2017-09-28] MEDS ORDERED: DiphenhydrAMINE 50 mg/ml Inj ONE (20:58)
[2017-09-28] MEDS ORDERED: EPINEPHrine 1 mg/ml (1:1000) Inj ONE (20:58)
--- NOTE | 2017-09-28 22:34 | ED PDOC ---
Arrival/HPI - General Chief Complaint: Allergic Reaction Time Seen by Provider: 09/28/17 20:50 Historian: Patient - History of Present Illness Narrative History of Present Illness (Text): 09/28/17 20:50 Marlin Simms is a 32 year old female who presents to the emergency department complaining of onset of diffuse generalized hives throughout her body. Patient reports associated itching. Patient denies any associates shortness of breath, chest pain, fever, chills, or abdominal pain. Patient notes she had eaten earlier tonight, but denies any diet changes. Time/Duration: Other (tonight) Symptom Onset: Gradual Symptom Course: Unchanged Activities at Onset: Light Context: Home Past Medical History - Provider Review Nursing Documentation Reviewed: Yes - Infectious Disease Hx of Infectious Diseases: None - Cardiac Hx Cardiac Disorders: No - Pulmonary Hx Pneumonia: Yes (09/25/17) - Neurological Hx Neurological Disorder: No - Renal Hx Renal Disorder: No - Hematological/Oncological Hx Blood Disorders: No - Musculoskeletal/Rheumatological Hx Musculoskeletal Disorders: No Hx Falls: No - Gastrointestinal Hx Gastrointestinal Disorders: No - Genitourinary/Gynecological Hx Genitourinary Disorders: No - Psychiatric Hx Psychophysiologic Disorder: No Hx Substance Use: No Family/Social History - Physician Review Nursing Documentation Reviewed: Yes Family/Social History: Unknown Family HX Smoking Status: Never Smoked Hx Alcohol Use: Yes (social) Hx Substance Use: No Allergies/Home Meds Allergies/Adverse Reactions: Allergies doxycycline Allergy (Verified 09/26/17 14:56) URTICARIA Review of Systems - Physician Review All systems were reviewed & negative as marked: Yes - Review of Systems Constitutional: Normal. absent: Fevers Eyes: Normal ENT: Normal Respiratory: Normal. absent: SOB, Cough Cardiovascular: Normal. absent: Chest Pain Gastrointestinal: Normal. absent: Abdominal Pain, Diarrhea, Nausea, Vomiting Genitourinary Female: Normal. absent: Dysuria, Frequency, Hematuria, Urine Output Changes Musculoskeletal: Normal. absent: Back Pain, Neck Pain Skin: Rash Neurological: Normal. absent: Headache, Dizziness Endocrine: Normal Hemo/Lymphatic: Normal Psychiatric: Normal Physical Exam Vital Signs Reviewed: Yes Vital Signs Pulse Resp BP Pulse Ox 09/28/17 23:21 95 H 18 124/74 96 09/28/17 20:47 122 H 20 148/85 95 Temperature: Afebrile Blood Pressure: Normal Pulse: Regular Respiratory Rate: Normal Appearance: Positive for: Well-Appearing, Non-Toxic, Comfortable Pain Distress: None Mental Status: Positive for: Alert and Oriented X 3 - Systems Exam Head: Present: Atraumatic, Normocephalic Pupils: Present: PERRL Extroacular Muscles: Present: EOMI Conjunctiva: Present: Normal Ears: Present: Normal, NORMAL TM, Normal Canal. No: Erythema, TM Bulging, Fluid , TM Perf Mouth: Present: Moist Mucous Membranes, Normal Lips, Normal Tounge Pharnyx: Present: Normal. No: ERYTHEMA, EXUDATE, TONSILS ENLARGED, Peritonsilar Swelling, Uvular Deviation, Muffled/Hoarse Voice, Strider, Soft Palate/Uvular Edema, Other (no pharyngeal edema) Nose (External): Present: Atraumatic Nose (Internal): Present: Normal Inspection Neck: Present: Normal Range of Motion. No: Meningeal Signs, MIDLINE TENDERNESS , Paraspinal Tenderness Respiratory/Chest: Present: Clear to Auscultation, Good Air Exchange. No: Respiratory Distress, Accessory Muscle Use Cardiovascular: Present: Regular Rate and Rhythm, Normal S1, S2. No: Murmurs Abdomen: No: Tenderness, Distention, Peritoneal Signs Back: Present: Normal Inspection Upper Extremity: Present: Normal Inspection. No: Cyanosis, Edema Lower Extremity: Present: Normal Inspection. No: Edema Neurological: Present: GCS=15, CN II-XII Intact, Speech Normal Skin: Present: Warm, Dry, Rashes (Diffusely scatted urticarial areas to arms, legs, torso, and face), Normal Color Psychiatric: Present: Alert, Oriented x 3, Normal Insight, Normal Concentration Medical Decision Making ED Course and Treatment: 09/28/17 20:50 Impression: 32 year old female complaining of pruritic diffuse generalized hives today. Differential Diagnosis included but are not limited to: allergic reaction vs. urticaria Plan: -- Benadryl -- Epinephrine -- Pepcid -- Solu-medrol -- Reassess and disposition Progress Notes: 09/28/17 23:38 On reevaluation the patient feels better and is in no acute distress. Patient given the opportunity to ask question, all questions were answered and there is agreement with the plan to discharge the patient home. Patient is stable for discharge. Patient was instructed to follow up with physician/clinic in 1-2 days or return if symptoms persist/worsen or new concerning symptoms arise. - Medication Orders Current Medication Orders: Discontinued Medications Diphenhydramine HCl (Benadryl) 50 mg IVP ONCE ONE Stop: 09/28/17 20:55 Last Admin: 09/28/17 21:05 Dose: 50 mg IVP Administration Document 09/28/17 21:05 RG (Rec: 09/28/17 21:12 RG [id number]) Charges for Administration # of IVP Administrations 1 Epinephrine HCl (Epinephrine) 0.3 mg SC ONCE ONE Stop: 09/28/17 20:53 Last Admin: 09/28/17 21:00 Dose: 0.3 mg Subcutaneous Administrations Document 09/28/17 21:00 RG (Rec: 09/28/17 21:12 RG [id number]) Injection Site MAR Injection Site Right Arm Charges for Administration # of Subcutaneous Administrations 1 Famotidine (Pepcid) 20 mg IVP STAT STA Stop: 09/28/17 20:57 Last Admin: 09/28/17 21:06 Dose: 20 mg IVP Administration Document 09/28/17 21:06 RG (Rec: 09/28/17 21:13 RG [id number]) Charges for Administration # of IVP Administrations 1 Methylprednisolone (Solu-Medrol) 125 mg IVP ONCE ONE Stop: 09/28/17 20:55 Last Admin: 09/28/17 21:05 Dose: 125 mg IVP Administration Document 09/28/17 21:05 RG (Rec: 09/28/17 21:12 RG [id number]) Charges for Administration # of IVP Administrations 1 - Scribe Statement The provider has reviewed the documentation as recorded by the Darrel Begum Provider Scribe Attestation: All medical record entries made by the Scribmarcia were at my direction and personally dictated by me. I have reviewed the chart and agree that the record accurately reflects my personal performance of the history, physical exam, medical decision making, and the department course for this patient. I have also personally directed, reviewed, and agree with the discharge instructions and disposition. Disposition/Present on Arrival - Present on Arrival Any Indicators Present on Arrival: No History of DVT/PE: No History of Uncontrolled Diabetes: No Urinary Catheter: No History of Decub. Ulcer: No History Surgical Site Infection Following: None - Disposition Have Diagnosis and Disposition been Completed?: Yes Diagnosis: Allergic reaction, Urticaria Disposition: HOME/ ROUTINE Disposition Time: 23:28 Patient Plan: Discharge Condition: GOOD Discharge Instructions (ExitCare): Jayme (ARIANNA) Additional Instructions: Take meds as prescribed/ follow up with your doctor this week Prescriptions: DiphenhydrAMINE [Benadryl] 50 mg PO Q6 PRN #24 cap PRN Reason: Itching / Pruritus predniSONE [Prednisone] 40 mg PO DAILY #10 tab Referrals: PCP,NO [Primary Care Provider] - Follow up with primary Forms: [place] (Australian), WORK NOTE
[2017-09-28 23:22] VITALS: BP 124/74; PULSE 95; RESP 18; O2SAT 96
== END 2017-09-28 23:50 | disposition home or self-care (01) ==
LOC: ED 20:47
DX: L50.9 Urticaria, unspecified (principal)
CPT/HCPCS: 96372; 96374; 96375; 99283; J0171; J1200; J2930